=== PATIENT | female | born 1950 | race Caucasian/White ===

== ENCOUNTER → 2016-12-03 | Outpatient (CLI) | payer OTHER, BC ==
[~2016-12-03] MED LIST: ASPCH81X PO; ATEN-173 PO; B-CO1CAP17 PO; CETI10TA84 PO; CHOL1000 PO; LEVO112T4 PO; MONT1TAB5 PO; OMEG10007 PO; TIOTCAP INH; TRAM-10 PO; VITACAP26 PO
[2016-12-03 13:48] LABS: THYROID STIMULATING HORMONE 0.068 uIu/ml (0.300-4.500)
== END | disposition home or self-care (01) ==
LOC: C.LABMFLN 10:32
PROVIDERS: ATTEND Family Medicine
DX: Z13.820 Encounter for screening for osteoporosis (principal); E55.9 Vitamin D deficiency, unspecified

== ENCOUNTER → 2017-05-25 | Outpatient (CLI) | payer OTHER, BC ==
[2017-05-25 13:38] LABS: ALT/SGPT 32 U/L (12-78); BLOOD UREA NITROGEN 16 mg/dl (7-18); BUN/CREATININE RATIO 26.2 (10-20); CALCIUM 8.6 mg/dl (8.5-10.1); CARBON DIOXIDE 28 mmol/L (21-32); CHLORIDE 108 mmol/L (98-107); CHOLESTEROL 187 mg/dl (0-200); CREATININE 0.61 mg/dl (0.60-1.20); GLUCOSE 100 mg/dl (70-99); POTASSIUM 4.1 mmol/L (3.5-5.1); SODIUM 141 mmol/L (136-145); TRIGLYCERIDES 123 mg/dl (0-150); VERY LOW DENSITY LIPOPROT CALC 25 mg/dl
[2017-05-25 13:47] LABS: ALB/GLOB RATIO 1.1 (0.9-2); ALKALINE PHOSPHATASE 55 U/L (45-117); AST/SGOT 18 U/L (15-37); CHOLESTEROL/HDL RATIO 3.7; HDL CHOLESTEROL 51 mg/dl; LDL CHOLESTEROL CALCULATED 111 mg/dl; THYROID STIMULATING HORMONE 0.204 uIu/ml (0.300-4.500)
== END | disposition home or self-care (01) ==
LOC: C.LABMFLN 10:35
PROVIDERS: ATTEND Family Medicine
DX: E03.9 Hypothyroidism, unspecified (principal); I10 Essential (primary) hypertension; Z13.820 Encounter for screening for osteoporosis

== ENCOUNTER → 2017-12-06 | Outpatient (CLI) | payer OTHER, BC | END | disposition home or self-care (01) | LOC: C.LABMFLN 08:26 | PROVIDERS: ATTEND Family Medicine | DX: E03.9 Hypothyroidism, unspecified (principal) ==

== ENCOUNTER → 2018-06-02 | Outpatient (CLI) | payer OTHER, BC ==
[~2018-06-02] MED LIST changes: -B-CO1CAP17 PO; +B-COCAP2 PO
[2018-06-02 14:56] LABS: ALT/SGPT 30 U/L (12-78); BLOOD UREA NITROGEN 18 mg/dl (7-18); CARBON DIOXIDE 26 mmol/L (21-32); CHOLESTEROL 168 mg/dl (0-200); CREATININE 0.71 mg/dl (0.60-1.20); GLUCOSE 90 mg/dl (70-99); LDL CHOLESTEROL CALCULATED 84 mg/dl; POTASSIUM 4.2 mmol/L (3.5-5.1); SODIUM 139 mmol/L (136-145)
== END | disposition home or self-care (01) ==
LOC: C.LABMFLN 09:08
PROVIDERS: ATTEND Family Medicine
DX: I10 Essential (primary) hypertension (principal); J44.9 Chronic obstructive pulmonary disease, unspecified; H10.45 Other chronic allergic conjunctivitis; M25.552 Pain in left hip; E03.9 Hypothyroidism, unspecified; M15.9 Polyosteoarthritis, unspecified; Z12.11 Encounter for screening for malignant neoplasm of colon